=== PATIENT | female | born 1960 | race Caucasian/White ===

== ENCOUNTER 2025-04-11 10:41 | Outpatient (AMB) | payer MEDICARE, MEDICAID, SELFPAY ==
--- NOTE | 2025-04-11 11:04 | MHC.OFFVIS ---
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 She was here with pain, which has been ongoing for the last year, but has worsened over the last few months. Pain was mostly to left gluteus radiating down left upper leg. She could not sit or stand for long periods of time because of pain. Left leg felt weird, but she she could not describe feeling further. She was taking ibuprofen at home which seemed to help, but did not take any today and was in significant discomfort. She was asking if prescription for ibuprofen could be sent and was also interested in PT. She was using walker more for additional support as left leg felt weaker and balance felt like it was more off. She reported falling about 1x/week. She apparently had known history of scoliosis and was working with chiropractor once a week for this. No trouble eating, drinking, or swallowing. [facility] Medical History (Updated 04/11/25 @ 11:54 by Candy Nieto CNP) Panic Anxiety Depression Review of Systems Const Denies chills, Reports daytime sleepiness, Reports difficulty sleeping, Reports fatigue, Denies fever(s), Denies frequent falls, Denies headache(s), Denies increased appetite, Denies poor appetite, Denies snoring, Denies weakness, Denies weight gain and Denies weight loss Eyes Denies loss of vision ENT Denies vertigo, Denies dizziness and Denies headache(s) Card Denies chest pain at rest, Denies chest pain with activity, Denies syncope, Denies leg edema and Denies palpitations Resp Denies snoring GI Denies constipation, Denies heartburn, Denies diarrhea and Denies nausea Denies urinary frequency, Denies urinary incontinence and Denies urinary urgency Musc Reports abnormal gait (balance difficulty), Denies numbness and Denies tingling Skin/Breast Denies dry skin and Denies rash Neuro Reports abnormal gait (balance difficulty), Denies vertigo, Denies dizziness, Denies syncope, Denies frequent falls, Denies headache(s), Reports lack of coordination, Denies loss of vision, Denies memory loss, Denies numbness, Denies restless legs, Denies seizure-like activity, Denies tingling, Denies paresthesias, Denies tremor(s) and Denies weakness Psych Reports anxiety, Reports depression, Denies auditory hallucinations, Denies memory loss, Denies visual hallucinations and Denies suicidal ideation Endo Reports fatigue and Denies palpitations Physical Exam Const Other: General Appearance:? normal, in no acute distress. Heart:? S1, S2 normal, no murmurs. Lungs:? clear anteriorly and posteriorly. Musculoskeletal:? normal. Extremities:? no edema. Psych:? alert, oriented, cognitive function intact, cooperative with exam. Neuro Other: Mental Status:?Normal attention, orientation, memory and anxious affect, fidgeting and changing positions.? Cranial Nerves:?Pupils are equal, round and reactive to light. External occular muscles are intact. Visual clarke are full. Face is symmetrical. Facial sensations are normal. Tongue is midline. Palate elevates symmetrically. Shoulder shrugging is normal. Hearing to bedside conversation is normal. Coordination:?Mild to moderate ataxia. Gait Exam: Moderately spastic gait. She has difficulty walking on toes and she tends to walk on heels. Extrapyramidal System:?No tremor, rigidity with normal facial expressions.? Pronator Drift:?Not present.? Involuntary Movements:?No tremors seen.? Speech:?Mild ataxia speech. 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 Discussed option for prednisone taper, declining at this time. PT referral placed. MRI LS ordered. Plan Meds tried: gabapentin, amantadine Orders: Orders PT Evaluation and Treatment Today G11.8 - Other hereditary ataxias, M54.16 - Radiculopathy, lumbar region MR lumbar spine wo con Today G11.8 - Other hereditary ataxias, M54.16 - Radiculopathy, lumbar region Medications: New ibuprofen with food or milk 600 mg PO BID PRN 60 tabs 2RF pain 30 days Coding Level of Care Code Est Pt Level 4 (60921) Diagnoses Eugene-John disease G11.8 Spinocerebellar ataxia G11.8 Fatigue, unspecified type R53.83 Fatigue type: unspecified Lumbar radiculopathy M54.16
--- OUTSIDE RECORDS SUMMARY | 2025-04-11 12:51 | XMS_ITS | Data Portability ---
Author Organization [place] - [facility], Allergy Address [address] [facility] [facility] [address] [place] [phone] Care Team Providers Care Weight Shifter Name Role Phone ESME MOCK Primary Care Provider Assessment Encounter Date Assessment Date Assessment LastModified by Organization Details LastModified Time 10/19/2024 10/19/2024 63-year-old female presents for reevaluation of left-sided otitis externa. Symptoms resolved with topical Ciprodex. TMs are intact and middle ear spaces are well-aerated. Patient will return for routine 6-month ear check with Dr. Arevalo. german Not available 10/19/2024 14:27:26 Plan of Treatment Reminders Order Date Submit Date Provider Last Modified By Organization Details Last Modified Time Details Appointments Establish ed 10 2024 03:00P M AG AREVALO MD Not available Not available Not available Lab None recorded. Referral None recorded. Procedures None recorded. Surgeries None recorded. Imaging None recorded. Medication Orders ciproflox acin 0.3 %-dexamet hasone 0.1 % ear drops,[facility] 2024 025 [facility]/Pharmacy #[id number], [address] [place], [address], 09/22/2024 15:46:29 clotrimaz ole 1 % topical solution 2023 025 [facility]/Pharmacy #[id number], [address] [place], [address], 09/22/2024 15:06:42 Patient TargetsNo targets recorded. Patient InstructionsNo instructions recorded. Reason for Referral None Reported. Problems Name Problem SNOMED Code Status Onset Date Resolution Date Notes Provider Name and Address Organization Details Recorded Time Itching of skin 217869303 Active 2019 Pruritus , unspecif ied; Note: Date Diagnose d: 0 2:29 PM (L29.9) Not Available [facility] 4 02:18:45 Central perforat ion of left tympanic membrane 67222690761 56579 Active 2019 Central perforat ion of tympanic membrane , left ear; Note: Date Diagnose d: 0 2:29 PM (H72.02) Not Available [facility] 4 02:19:47 Disorder of left Eustachi an tube 14946850342 24350 Active 2019 Other specifie d disorder s of Eustachi an tube, left ear; Note: Date Diagnose d: 0 3:12 PM (H69.82) Not Available [facility] 4 02:19:38 Sensorin eural hearing loss of bilatera l ears 245921625 Active 2019 Sensorin eural hearing loss, bilatera l; Note: Date Diagnose d: 04/10/20 20 2:28 PM (H90.3) Not Available [facility] 4 02:19:22 Adhesive middle ear disease 2151192 Active 2019 Adhesive middle ear disease, bilatera l; Note: Date Diagnose d: 04/10/20 20 1:30 PM (H74.13) Not Available [facility] 4 02:19:42 Partial loss of ear ossicles 95737223 Active 2019 Partial loss of ear ossicles , left ear; Note: Date Diagnose d: 04/10/20 20 1:30 PM (H74.322 ) Not Available [facility] 4 02:19:54 Mixed conducti ve and sensorin eural hearing loss, bilatera l 932822757 Active 2020 Mixed conducti ve and sensorin eural hearing loss, bilatera l; Note: Date Diagnose d: 1 2:28 PM (H90.6) Not Available [facility] 4 02:19:42 Choleste atoma of left tympanic membrane 09001246550 16507 Completed 202001/22/2024 Choleste atoma of tympanum , left ear; Note: Date Diagnose d: 08/24/2020 1:24 PM (H71.12) Not Available [facility] 4 02:18:50 Follow-u p visit Active 2020 Medical surveill ance followin g complete d treatmen t; Note: Date Diagnose d: 3:16 PM (Z09) Not Available [facility] 4 02:18:36 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 050741632 Completed 202001/22/2024 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, left ear; Note: Date Diagnose d: 06/07/20 21 3:58 PM (H95.02) Not Available [facility] 4 02:19:26 Sensorin eural hearing loss in left ear 04080563725 109 Active 2021 Sensorin eural hearing loss, unilater al, left ear, with restrict ed hearing on the contrala teral side; Note: Date Diagnose d: 09/24/2021 4:00 PM (H90.A22 ) Not Available [facility] 4 02:19:26 Pain of left temporom andibula r joint 56460063849 410635 Active 2021 Arthralg ia of left temporom andibula r joint; Note: Date Diagnose d: 2 3:11 PM (M26.622 ) Not Available [facility] 4 02:18:48 Otalgia of left ear 8396769277 Active 2021 Otalgia, left ear; Note: Date Diagnose d: 2 3:11 PM (H92.02) Not Available [facility] 4 02:18:30 Otorrhea of left ear 56933238740 13933 Completed 202101/22/2024 Otorrhea , left ear; Note: Date Diagnose d: 2 3:11 PM (H92.12) Otorrh ea, left ear; Note: Date Diagnose d: 05/21/20 21 3:46 PM (H92.12) ; Start Date : 05/21/20 21 Otorr hea, left ear; Note: Date Diagnose d: 0 2:29 PM (H92.12) ; Start Date : 01/30/20 20 AG AREVALO MD [address] [place] [address], [place], [phone] , [facility] - [facility] 5 15:45:21 Candidal otitis externa 73216250 Active 2022 Candidal otitis externa; Note: Date Diagnose d: 09/25/2022 3:39 PM (B37.84) Not Available [facility] 4 02:18:58 Tobacco user 301678401 Active 2022 Tobacco use; Note: Date Diagnose d: 03/31/20 23 3:31 PM (Z72.0) Not Available [facility] 4 02:18:36 Superfic ial mycosis 594211194 Active 2023 Other specifie d superfic ial mycoses; Note: Date Diagnose d: 4 4:00 PM (B36.8) Not Available [facility] 4 02:19:52 Dermal mycosis 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 Active 2023 AG AREVALO MD [address] [place] [address], [place], [phone] , [facility] 4 16:11:44 Chronic mycotic otitis externa 669288831 Active 2023 AG AREVALO MD [address] [place] [address],[place] [address], [place], [address] , [facility] 4 16:11:44 Otorrhea of left ear 17061790040 21001 Active 2024 Otorrhea , left ear; Note: Date Diagnose d: 2 3:11 PM (H92.12) Otorrh ea, left ear; Note: Date Diagnose d: 05/21/20 21 3:46 PM (H92.12) ; Start Date : 05/21/20 21 Otorr hea, left ear; Note: Date Diagnose d: 0 2:29 PM (H92.12) ; Start Date : 01/30/20 20 AG AREVALO MD [address] [facility],[place] [address], [place], [address] , [facility] 5 15:45:21 Notes:Unspecified complicati on of procedure, initial encounter Note: Date Diagnosed: 08/31/2020 5:07 PM (T81.9XXA) Note: Date Diagnosed: 08/31/2020 5:07 PM (T81.9XXA) Problem Notes None recorded. Procedures Surgical History Date Name Laterality Status Provider Name and Address Organization Details Recorded Time 5 EAC debris removal with microscope completed AG AREVALO MD [address] [place] [address],[place] [address], [place], [address], [facility] 09/22/2024 15:45:50 4 EAC debris removal with microscope completed AG AREVALO MD [address] [place] [address],[address], [address], [facility] 03/22/2024 16:11:02 Imaging Results None recorded. Procedure Notes None recorded. Medical Equipment None Reported. Allergies Allergen ID Allergen Name Allergen Category Reaction Reaction Severity Criticality Documentation Date Start Date Code Code System Note Provider Name and Address Organization Details Recorded Time 06625 Iodinated contrast media (substanc e) medicatio n other Not available Not available 11/03/2023 80094 2003 SNOMED React ion: unkno wn, unspe cifie d;; Not Available [facility] 4 00:51:41 Medications Name Sig Start Date Stop Date Status Note LastModified by Organization Details LastModified Time amantadin e HCl 100 mg tablet TAKE 1 TABLET IN AM AND 1 TAB AT NOON ORALLY DIRECTED 30 DAY(S) 03/22 completed Not Available Not Available Not Available amoxicill in 500 mg capsule TAKE 1 CAPSULE (500 MG) BY MOUTH EVERY 8 HOURS FOR 7 DAYS 09/22 completed Not Available Not Available Not Available Augmentin 875 mg-125 mg tablet 03/22 completed Medicati on ID: [id number] D uration Value: 10 Prescri bed By Name: SJ Macias nd Name: Augmenti n Send Method: E-Prescr ibed Sub s Allowed: subs OK Speci al Instruct ion: 1 po bid for 10 days Med icationG enericNa me: Augmenti n Not Available Not Available Not Available alendrona te 70 mg tablet TAKE 1 TABLET BY MOUTH EVERY 7 DAYS active Not Available Not Available No t Available clonazepa m 0.5 mg tablet TAKE 1 TABLET BY MOUTH EVERY DAY NEEDED active Not Available Not Available No t Available sertralin e 100 mg tablet TAKE 1 AND 1/2 TABLETS BY MOUTH EVERY MORNING active Not Available Not Available No t Available Ciloxan 0.3 % eye drops 03/22 completed Medicati on ID: [id number] D uration Value: 14 Brand Name: Ciloxan Send Method: E-Prescr ibed Sub s Allowed: subs OK Speci al Instruct ion: Instill 4 drops twice a day into right ear for 14 days Med icationG enericNa me: Ciloxan Not Available Not Available Not Available acetamino phen 500 mg tablet TAKE 1 TABLET BY MOUTH EVERY 6 HOURS IF NEEDED FOR MILD PAIN FOR UP TO 10 DAYS. 09/22 completed Not Available Not Available Not Available clotrimaz ole-betam ethasone 1 %-0.05 % topical cream APPLY SMALL AMOUNT WITH A CLEAN FINGER THREE TIMES DAILY FOR TWO WEEKS THEN NEEDED 03/22 completed Not Available Not Available Not Available clotrimaz ole 1 % topical solution APPLY 4 DROPS TO THE AFFECTED EAR 3 TIMES A DAY FOR 2 WEEKS 09/22 completed Not Available Not Available Not Available ibuprofen 600 mg tablet TAKE 1 TABLET (600 MG) BY MOUTH EVERY 6 (SIX) HOURS IF NEEDED FOR MILD PAIN FOR UP TO 10 DAYS. 09/22 completed Not Available Not Available Not Available sertralin e 50 mg tablet TAKE 1 TABLET BY MOUTH EVERY DAY IN THE MORNING 09/22 completed Not Available Not Available Not Available tobramyci n 0.3 %-dexamet hasone 0.1 % eye drops,[facility] pension INSTILL 4 DROPS INTO LEFT EAR(S) BY OTIC ROUTE 2 TIMES PER DAY FOR 10 DAYS active Not Available Not Available No t Available oxycodone 5 mg tablet 1 tablet by mouth 03/22 completed Medicati on ID: [id number] D uration Value: 3 Brand Name: oxycodon e Send Method: E-Prescr ibed Sub s Allowed: subs OK Medic ationGen ericName : oxycodon e Not Available Not Available Not Available neomycin- polymyxin -hydrocor t 3.5 mg-10,000 unit/mL-1 % ear drops,tamara p into both ears 09/30 completed Medicati on ID: [id number] P rescribe d By Name: Ag Arevalo M.D. Bra nd Name: neomycin -polymyx in-HC Se nd Method: E-Prescr ibed Sub s Allowed: subs OK Speci al Instruct ion: 4 drops affected ear BID X 14 days Med icationG enericNa me: neomycin -polymyx in-HC Not Available Not Available Not Available ciproflox acin 0.3 %-dexamet hasone 0.1 % ear drops,[facility] pension INSTILL 4 DROPS INTO LEFT EAR TWICE A DAY FOR 10 DAYS active Not Available Not Available No t Available chlorhexi dine gluconate 0.12 % mouthwash RINSE AND SPIT 15 ML IN THE MOUTH OR THROAT FOR 30 SECONDS IF NEEDED FOR 14 DAYS 09/22 completed Not Available Not Available Not Available Vitals Date Recorded Body height Body mass index (BMI) Body weight Provider Name and Address Organization Details Last Updated DateTime 10/19/2024 161.29 cm 20.1 kg/m2 41384.12 g Galina Narvaez [facility] 10/19/2024 14:17:51 Social History None recorded. Functional Status None recorded. Mental Status None recorded. Family History Nothing Reported. Medical History Condition Response Anxiety Y Depression Y Gynecological HistoryNo gynecological history recorded. Obstetrics History GPAL:G 0 P 0 0 0 0 Past Encounters Encounter ID Performer Location Encounter Start Date Encounter Closed Date Diagnosis/Indication Diagnosis SNOMED-CT Code Diagnosis ICD10 Code Diagnosis IMO Codes Diagnosis Note [id number] AG AREVALO MD [facility] [address] [address] 03/22/2024 15:21:41 03/22/2024 16:14:36 Candidal otitis externa 50520123 B37.84 Patient is demonstrat ing left fungal otitis externa medially. This is not affecting the medial skin. The ear was thoroughly debrided of fungal debris. Recommend 2 weeks of topical clotrimazo le drops to be used 3 times a day. This should clear up this low-level infection. [id number] AG AREVALO MD [facility] [address] [address] 09/22/2024 14:47:25 09/22/2024 15:51:35 Otorrhea of left ear [id number] 716711 H92.12 Left ear is demonstrat ing yellow/gre en otorrhea which is much more likely to be bacterial than fungal at this point. Recommend 10 days of topical Ciprodex drops to be used twice a day. Recommend dry ear precaution s. Follow-up with PA in 2 to 3 weeks to ensure resolution of the infection Tobacco user 742072887 Z 72.0 Recommende d stopping smoking as this is likely a factor in her propensity towards chronic infection [id number] ALLAN MARINO PA-C [facility] [address] [address] 10/19/2024 14:12:01 10/19/2024 14:25:03 Adhesive middle ear disease 9756156 H74.13 Health Concerns Section Related Observation LastModified by Organization Detai ls LastModified Time None Recorded Concern Status LastModified by Organization Details LastModified Time None Recorded Advance Directives Directive None Recorded Payers Insurance Date Sequence Insurance Name Policy Number Policy Samuel Covered Member ID Samuel Member ID Guarantor Name 09/22/2024 2 [place] 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 I have prescribed clotrimazole/betam ethasone cream to be used 3 times a day for 2 weeks. Recommend strongly against further Q-tip use. Patient reports that she has not been using Q-tips. She has been noticing significant itchiness in the left ear recently. AG AREVALO MD [address] 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 She has been treated with clotrimazole/betam ethasone cream as well as topical clotrimazole drops. Last seen back in March 2024. AG AREVALO MD [address] [facility], [address], [facility] - [facility] 09/22/2024 15:49:54 10/19/2024 text/html ROS as noted in the HPI 63-year-old female presents for reevaluation of left-sided otitis externa. She trialed topical Ciprodex for 10 days. Patient reports symptoms resolved. No new concerns today. AG AREVALO MD [address] [facility], [address], [facility] - [facility] 10/19/2024 17:16:08 OBGyn Episode No OBEpisode recorded.
== END 2025-04-11 11:28 | disposition home or self-care (01) ==
LOC: HO.HSM 10:41
PROVIDERS: PCP Internal Medicine; Referring Provider Internal Medicine; Visit Provider Registered Nurse
DX: G11.8 Other hereditary ataxias (principal); R53.83 Other fatigue; M54.16 Radiculopathy, lumbar region
CPT/HCPCS: 99214

== ENCOUNTER → 2025-04-11 10:41 | Outpatient (BNVA) | payer MEDICARE, MEDICAID, SELFPAY | PROVIDERS: PCP Internal Medicine; Referring Provider Internal Medicine; Visit Provider Registered Nurse | DX: G11.8 Other hereditary ataxias (principal); R53.83 Other fatigue; M54.16 Radiculopathy, lumbar region | CPT/HCPCS: 99212 ==

== ENCOUNTER 2025-05-24 16:22 | Outpatient (REF) | payer MEDICARE, MEDICAID, SELFPAY ==
--- NOTE | ~2025-05-24 | MR_ITS ---
EXAM: MRI Lumbar Spine without Contrast. TECHNIQUE: Multiplanar multisequence MRI of the lumbar spine with performed without contrast. INDICATION: M54.16 - Radiculopathy, lumbar PRIOR: None FINDINGS: 5 non-rib bearing lumbar segments are assumed for numbering purposes. If level specific intervention is planned, correlate with an x-ray to ensure concordant numbering. Marrow and end-plates: There is a chronic superior endplate fracture of T11. There is mild edema like signal in the right superior facet of L4. Alignment: There is mild levoscoliosis. Soft tissues: Paraspinal soft tissues and major vascular structures are unremarkable. Conus: The termination of conus medullaris is within normal limits at the level of upper L2. T12-L1: There is no disc bulge, herniation, spinal stenosis, or foraminal narrowing. L1-L2: There is mild loss disc height and circumferential broad-based disc bulge. There is mild facet arthropathy. There is no spinal stenosis or foraminal narrowing. L2-L3: There is mild circumferential broad-based disc bulge and mild facet arthropathy. There is subtle narrowing of the right subarticular zone without clear compression of the nerve root. There is very minimal foraminal narrowing. L3-L4: There is mild circumferential broad-based disc bulge and mild facet arthropathy without spinal stenosis. There is minimal foraminal narrowing. L4-L5: There is mild broad-based disc bulge and facet arthropathy without spinal stenosis. There is very minimal foraminal narrowing. L5-S1: Chronic right pars intra-articularis defect is noted. There is subtle anterolisthesis with minimal broad-based disc bulge not resulting in spinal stenosis. There is minimal foraminal narrowing. MR/MR lumbar spine wo con IMPRESSION: Mild multilevel degenerative disc disease and facet arthropathy without clear nerve root compression or spinal stenosis. There is mild edema like signal superior facet of L4 on the right of uncertain etiology or significance. Possible etiologies could include stress response or degenerative change. L5-S1 demonstrates subtle grade 1 anterolisthesis and a unilateral chronic right pars interarticularis defect. Electronically signed by: Yosi Paez MD 05/24/2025 05:39 PM [facility]
--- OUTSIDE RECORDS SUMMARY | 2025-05-24 19:00 | XMS_ITS | Clinical Summary ---
Author Organization [employer] [facility] Address [address] [place] [address] Care Team Providers Care Wrecking Supervisor Name Role Phone Unavailable Primary Care Provider Unavailabl e Allergies Active Allergy Reactions Criticality Noted Date Comments Lactose Intolerance (Gi) 06/08/2024 Medications clonazePAM (KlonoPIN) 0.5 MG tablet Take 0.5 mg by mouth if needed each day. Active sertraline (Zoloft) 100 MG tablet TAKE 1 AND 1/2 TABLETS BY MOUTH EVERY MORNING Active sertraline (Zoloft) 50 MG tablet Take 1 tablet by mouth in the morning. Active Social History Tobacco Use Types Packs/Day Years Used Date Smoking Tobacco: Never Assessed Comments Unknown Sex and Gender Information Value Date Recorded Sex Assigned at Female 04/21/2022 10:31 AM EDT Legal Sex Female 10:31 AM EDT Gender Identity Female 04/21/2022 10:31 AM EDT Sexual Orientation Straight 04/21/2022 10 :31 AM EDT Last Filed Vital Signs Vital Sign Reading Time Taken Comments Blood Pressure 118/77 06/08/2024 11:34 AM EST Pulse 79 06/08/2024 11:34 AM EST Temperature - - Respiratory Rate - - Oxygen Saturation - - Inhaled Oxygen Concentration - - Weight - - Height - - Body Mass Index - - Plan of Treatment Health Maintenance Due Date Last Done Comments CT Colonography 1962 Colonoscopy 1962 Colorectal Cancer Screening 1962 Depression Screening 1962 FIT DNA/Cologuard 1962 FIT 1962 FOBT 1962 HIV Screening 1962 SDOH Screening 1962 Sigmoidoscopy 1962 Disability Screening 1962 Alcohol/Substance Use Screening 1974 Tobacco Screening 1974 Hepatitis C Screening 1980 Pap Smear 12/19/1983 Cervical Cancer Screening 1992 HPV/Cotest 1992 Mammogram 2002 Pneumococcal Vaccine: 50+ Years (1 of 1 - PCV) 2012 Zoster Vaccines (1 of 2) 2012 Dental Oral Exam 11/07/2021 05/09/2021, 01/30/2017 Dental Prophylaxis 11/07/2021 05/09/2021, 02/03/2017 DTaP/Tdap/Td Vaccines (2 - T d or Tdap) 02/25/2023 02/25/2013 Dental X-Ray: Full Mouth 05/10/2024 021, 01/30/2017 COVID-19 Vaccine ( - 2024-2 6 season) 2025 Influenza Vaccine (#1) 2025 Dental X-Ray: Bitewings 06/09/2025 06/08/20 24, 05/09/2021, 01/30/2017 RSV Patients and Patients Aged 60 years or older (1 - 1-dose 75+ series) 2037 HIB Vaccines Aged Out No longer eligi ble based on patient's age to complete this topic HPV Vaccines Aged Out No longer eligi ble based on patient's age to complete this topic Hepatitis A Vaccines Aged Out No long er eligible based on patient's age to complete this topic Hepatitis B Vaccines Aged Out No long er eligible based on patient's age to complete this topic IPV Vaccines Aged Out No longer eligi ble based on patient's age to complete this topic Meningococcal B Vaccine Aged Out No l onger eligible based on patient's age to complete this topic Meningococcal Vaccine Aged Out No catalina rosa eligible based on patient's age to complete this topic RSV under 20 months Aged Out No longe r eligible based on patient's age to complete this topic Rotavirus Vaccines Aged Out No longer eligible based on patient's age to complete this topic Procedures Procedure Name Priority Date/Time Associated Diagnosis Comments BITEWING - SINGLE RADIOGRAPHIC IMAGE Routine 06/08/2024 11:30 AM EST Symptomatic periapical periodontitis PROPHYLAXIS - ADULT Routine 05/09/2021 1 2:00 AM EST INTRAORAL - COMPLETE SERIES OF RADIOGRAPHIC IMAGES Routine 05/09/2021 12:00 AM EST PERIODIC ORAL EVALUATION - ESTABLISHED PATIENT Routine 05/09/2021 12:00 AM EST from Last 3 Months or Most Recently Relevant to Health Maintenance Insurance [id number] [facility] [address] JERI Harris20 DENTAL - [facility]
--- OUTSIDE RECORDS SUMMARY | 2025-05-24 19:00 | XMS_ITS | Encounter Summary ---
Author Organization [facility] Address [address] [place] [address] Care Team Providers Care Forensic Economist Name Role Phone Krysten Villegas MD Primary Care Provider [phone] Encounter Details Date Type Department Care Team (Late Contact Info) Description 05/01/2025 Results Follow-Up [address] [phone] Marianela Martinez MD [address] [place] [id number] Social History Tobacco Use Types Packs/Day Years Used Date Smoking Tobacco: Every Day Cigarettes 1 45.9 Started: 06/22/1979 Smokeless Tobacco: Current Alcohol Use Standard Drinks/Week Comments No 0 (1 standard drink = 0.6 oz pur e alcohol) Comments Unknown Sex and Gender Information Value Date Recorded Sex Assigned at Not on file Legal Sex Female 2:17 PM EST Gender Identity Not on file Sexual Orientation Not on file documented as of this encounter Plan of Treatment Upcoming Encounters Date Type Department Care Team (Late Contact Info) Description 11/27/2025 1:40 PM EDT Office Visit [address] [phone] Steven Mcgarry MD [address], [place] documented as of this encounter Visit Diagnoses Not on filedocumented in this encounter Care Teams Forensic Economist Relationship Specialty Start Date End Date Krysten Villegas MD [address] [place] [address] PCP - General 08/01/22 documented as of this encounter
--- OUTSIDE RECORDS SUMMARY | 2025-05-24 19:00 | XMS_ITS | Encounter Summary ---
Author Organization [employer] [facility] Address [address] [facility] 7 [place] [address] Care Team Providers Care Systems Programmer Name Role Phone Unavailable Primary Care Provider Unavailabl e Encounter Details Date Type Department Care Team (Latest Contact Info) Description 05/09/2021 Abstract [facility] CONVERSIONS Dental, Provider, DDS Social History Tobacco Use Types Packs/Day Years Used Date Smoking Tobacco: Never Assessed Comments Unknown Sex and Gender Information Value Date Recorded Sex Assigned at Female 04/21/2022 10:31 AM EDT Legal Sex Female 10:31 AM EDT Gender Identity Female 04/21/2022 10:31 AM EDT Sexual Orientation Straight 04/21/2022 10 :31 AM EDT documented as of this encounter Plan of Treatment Not on file documented as of this encounter Visit Diagnoses Not on filedocumented in this encounter
--- OUTSIDE RECORDS SUMMARY | 2025-05-24 19:00 | XMS_ITS | Clinical Summary ---
Author Organization [address] Address [address] [place] [address] [place] [address] Phone Care Team Providers Care Hadoop Java Developer Name Role Phone Krysten Villegas MD Primary Care Provider [phone] Allergies Active Allergy Reactions Criticality Noted Date Comments Iodinated Contrast Media Wheezing 12/16/2014 Ivp Dye [Iv Contrast Dye], SOB, Wheezing Lactose 02/25/2013 Medications clonazePAM (KlonoPIN) 0.5 mg tablet Take 0.5 mg by mouth daily. Hs for sleep Active sertraline (ZOLOFT) 100 mg tablet Take 100 mg by mouth daily. 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 Diagnosed [address] Helm Internal derangement of knee joint 07/26/2015 Overview (06/06/2024): 2012: posterior medial meniscal tear in right knee on MRI Papanicolaou smear of cervix with low grade squamous intraepithelial lesion (LGSIL) 05/11/2013 Overview (06/06/2024): Colposcopy and ECC normal, repeat co-testing in 12 months Depression 07/10/2010 Overview (06/06/2024): History for years - started 1999 Tobacco use disorder 07/10/2010 Encounters Date Type Department Care Team Description 05/01/2025 Results Follow-Up Endocrinology - [place] [address], [place] [phone] Marianela Martinez MD 04/25/2025 9:33 AM EST - 04/25/2025 11:59 PM EST Hospital Encounter Bone Density - [place] [id number] [place], [place] [phone] Osteoporosis without current pathological fracture, unspecified osteoporosis type Discharge Disposition: Home or Self Care from Last 3 Months Immunizations Immunization Administration Dates Next Due Tdap Tetanus diptheria acell ular pertussis (Boostrix; Adacel) 7yo and older 02/25/2013 Surgical History Surgery Date Site/Laterality Comments COLONOSCOPY 04/08/13 PROCEDURE: HISTORICAL COLONOSCOPY; COMMENT: hemorrhoids; repeat in ten yrs Medical History Medical History Date Comments Breast cyst DX:Breast cyst; COMMENT: right side Depression DX:Depression Internal derangement of knee joint 07/26/2015 DX:Internal derangement of knee joint; COMMENT: 2011: posterior medial meniscal tear in right knee on MRI Lung nodules 12/20/2016 DX:Lung nodules; COMMENT: 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); COMMENT: dr rosas Family History Medical History Relation Name Comments No Known Problems Brother 1 Other: Eugene-John disease Brother 2 (spinal cerebellar ataxia) Hypertension Brother 3 high chol Diabetes Brother 4 No Known Problems Daughter Lung cancer Father , smoke r No Known Problems Maternal Grandfather No Known Problems Maternal Grandmother Dementia Mother Diabetes Mother Hypertension Mother dementia Other: other cancer Other uncles No Known Problems Paternal Grandfather No Known Problems Paternal Grandmother No Known Problems Sister 1 No Known Problems Sister 2 Lung cancer Sister 3 , smoke r Hypertension Sister 4 Diabetes Sister 5 Arthritis Sister 6 Breast cancer Neg Hx Relation Name Status Comments Brother 1 dm, hyperlipide becky, htn spinocerebellar ataxia Brother 2 Brother 3 Brother 4 Daughter Father (Age 68) lung cance r Maternal Grandfather Maternal Grandmother Mother (Age 77) dementia, dm, htn Other Paternal Grandfather Paternal Grandmother Sister 1 (Age 52) lung cance r Sister 2 Alive hyperliopidemia Sister 3 Sister 4 Sister 5 Sister 6 Uncle spinocerebellar ataxia Social History Tobacco Use Types Packs/Day Years [...] on file Sexual Orientation Not on file Obstetrics History Last Filed Vital Signs Vital Sign Reading Time Taken Comments Blood Pressure 91/53 11/24/2024 8:55 AM EDT Pulse 100 11/24/2024 8:55 AM EDT Temperature 36.6 C (97.9 F) 11/24/2024 8:55 AM EDT Respiratory Rate 14 11/24/2024 8:55 AM EDT Oxygen Saturation - - Inhaled Oxygen Concentration - - Weight 53.1 kg (117 lb) 11/24/2024 8:55 AM EDT Height 162.6 cm (5' 4.02 ) 11/24/2024 8:55 AM ED T Body Mass Index 20.07 11/24/2024 8:55 AM EDT Plan of Treatment Upcoming Encounters Date Type Department Care Team (Late st Contact Info) Description 11/27/2025 1:40 PM EDT Office Visit Endocrinology - [place] [address], [place] [phone] Steven Mcgarry MD [address] [place] [address] Health Maintenance Due Date Last Done Comments Colorectal Cancer Screening: Colonoscopy 1962 COVID-19 Vaccine (#1) 12/19/1967 Pneumococcal Vaccine: 50+ Years (1 of 2 - PCV) 1981 Zoster Vaccines (1 of 2) 1981 Breast Cancer Screening 10/07/2020 10/07/2018 Cervical Cancer Screening: P ap Smear 09/10/2021 09/10/2018 Medicare Annual Wellness Visit 05/31/2022 Social Influencers of Health Screening 05/31/2022 DTaP,Tdap,and Td Vaccines (2 - Td or Tdap) 02/25/2023 02/25/2013 Depression Screening 06/22/2024 Cholesterol Screening (Lipid Panel) 09/07/2024 09/08/2019 Influenza Vaccine (#1) 2025 Osteoporosis Screening (Bone Density Screening) 04/25/2035 04/25/2025, 10/31/2022 RSV Immunization Adult Patients (1 - 1-dose 75+ series) 2037 HIV Screening Completed 02/05/2012 Hepatitis C Screening Completed 02/17/2012 HIB Vaccines Aged Out No longer eligi [...] on patient's age to complete this topic MMR Vaccines Aged Out No longer eligi ble based on patient's age to complete this topic Meningococcal ACWY Vaccine Aged Out N o longer eligible based on patient's age to complete this topic Meningococcal B Vaccine Aged Out No l onger eligible based on patient's age to complete this topic RSV Immunization Patients Under 20 months Aged Out No longer eligible b ased on patient's age to complete this topic Varicella Vaccines Aged Out No longer eligible based on patient's age to complete this topic Procedures Procedure Name Priority Date/Time Associated Diagnosis Comments BD BONE DENSITY DXA AXIAL SKELETON Routine 04/25/2025 10:17 AM EST Osteoporosis without current pathological fracture, unspecified osteoporosis type LIPID PANEL Routine 09/08/2019 SCR MAMMO BI INCL CAD Routine 10/07/2018 12:03 PM EDT Encounter for general adult medical examination without abnormal findings Nicotine dependence, unspecified, uncomplicated PAP SMEAR Routine 09/10/2018 HEPATITIS C SCREENING Routine 02/17/2012 HIV SCREENING Routine 02/05/2012 from Last 3 Months or Most Recently Relevant to Health Maintenance Results * BD Bone Density DXA Axial Skeleton (04/25/2025 10:17 AM EST) Anatomical Region Laterality Modality Wrist, Hip, L-spine Bone Densito metry 05/01/2025 8:36 AM EST Impressions 05/01/2025 8:37 AM EST Osteoporosis by WHO criteria. The [facility] Department of Internal Medicine recommends using National Osteoporosis Foundation (NOF) guidelines in treatment decisions related to osteoporosis. NOF guidelines suggest considering treatment for postmenopausal women and men aged 50 or older presenting with the following: History of hip or vertebral fracture. T-score = -2.5 (DXA) at the femoral neck, total hip, or spine, after appropriate evaluation to exclude secondary causes. Low bone mass (T-score between -1.0 and -2.5 at the femoral neck or spine) AND a 10-year probability of a hip fracture = 3% OR a 10-year probability of a major osteoporosis-related fracture = 20% based on the [place]-adapted WHO algorithm Please note that all treatment decisions require clinical judgment and consideration of individual patient factors, including patient preferences, co-morbidities, previous drug use, risk factors not captured in the FRAX model (e.g., frailty, falls, vitamin D deficiency, increased bone turnover, interval significant decline in bone density) and possible under- or over-estimation of fracture risk by FRAX. Optional alternative screening schedule based on honorio Bwoen., [facility] July 10, 2011 for patients with osteopenia (based on hip BMD T-score) is as follows: * advanced osteopenia (T scores -2.00 to -2.49), BMD testing every year * moderate osteopenia (T scores -1.50 to -1.99), BMD testing every 5 years mild osteopenia or normal BMD (T scores -1.50 and higher), BMD testing every 15 years -------- FINAL REPORT -------- Dictated By: Charleen Quintero Dictated Date: 05/01/2025 08:36 ET Assigned Physician: Charleen Quintero Reviewed and Electronically Signed By: Charleen Quintero Signed Date: 05/01/2025 08:37 ET Workstation ID: [id number] Transcribed By: Self Edit Transcribed Date: 05/01/2025 08:36 ET Narrative 05/01/2025 8:37 AM EST BONE DENSITY SCAN (DEXA): FINDINGS: Lumbar Spine T-score is -2.4. (SD relative to 20-29 y/o adult) Z-score is -0.8. (SD relative to age matched peers) This is considered osteopenia by WHO criteria. Left Hip T-score is -2.5. Z-score is -1.1. This is considered osteoporosis by WHO criteria. Comparison exam(s): 10/31/2022. 14.4% increase in lumbar spine bone mineral density and 8.8% increase in left hip bone mineral density, both statistically significant at the 95% confidence level. Procedure Note Charleen Quintero MD - 05/01/2025 BONE DENSITY SCAN (DEXA): FINDINGS: Lumbar Spine T-score is -2.4. (SD relative to 20-29 y/o adult) Z-score is -0.8. (SD relative to age matched peers) This is considered osteopenia by WHO criteria. Left Hip T-score is -2.5. Z-score is -1.1. This is considered osteoporosis by WHO criteria. Comparison exam(s): 10/31/2022. 14.4% increase in lumbar spine bonemineral density and 8.8% increase in left hip bone mineral density, bothstatistically significant at the 95% confidence level. IMPRESSION: Osteoporosis by WHO criteria. The [facility] Department of Internal Medicine recommendsusing National Osteoporosis Foundation (NOF) guidelines in treatmentdecisions related to osteoporosis. NOF guidelines suggest consideringtreatment for postmenopausal women and men aged 50 or older presentingwith the following: History of hip or vertebral fracture. T-score = -2.5 (DXA) at the femoral neck, total hip, or spine, afterappropriate evaluation to exclude secondary causes. Low bone mass (T-score between -1.0 and -2.5 at the femoral neck or spine)AND a 10-year probability of a hip fracture = 3% OR a 10-year probabilityof a major osteoporosis-related fracture = 20% based on the [place]-adapted WHOalgorithm Please note that all treatment decisions require clinical judgment andconsideration of individual patient factors, including patientpreferences, co-morbidities, previous drug use, risk factors not capturedin the FRAX model (e.g., frailty, falls, vitamin D deficiency, increasedbone turnover, interval significant decline in bone density) and possibleunder- or over-estimation of fracture risk by FRAX. Optional alternative screening schedule based on honorio Bowen., [facility] for patients with osteopenia (based on hip BMD T-score)is as follows: * advanced osteopenia (T scores -2.00 to -2.49), BMD testing every year * moderate osteopenia (T scores -1.50 to -1.99), BMD testing every 5years mild osteopenia or normal BMD (T scores -1.50 and higher), BMD testingevery 15 years -------- FINAL REPORT -------- Dictated By: Charleen Quintero Dictated Date: 05/01/2025 08:36 ET Assigned Physician: Charleen Quintero Reviewed and Electronically Signed By: Charleen Quintero Signed Date: 05/01/2025 08:37 ET Workstation ID: [id number] Transcribed By: Self Edit Transcribed Date: 05/01/2025 08:36 ET Marianela Martinez MD IMG DXA PROCEDURES Final Result * (ABNORMAL) Lipid panel (09/08/2019) LDL/HDL Ratio 4 0 - 4 Triglycerides 74 0 - 150 mg/dL Cholesterol 196 0 - 200 mg/dL HDL 50 >=40 mg/dL LDL Cholesterol 132(A) 0 - 100 mg/dL Blood Venous blood specimen / Unknown Historical Provider LAB BLOOD ORDERABLES Madai l Result * SCR MAMMO BI INCL CAD (10/07/2018 12:03 PM EDT) Anatomical Region Laterality Modality Radiographic Rosy ging 09/10/2018 12:2 9 PM EDT Narrative 10/11/2018 12:36 PM EDT This is a summary report. The complete report is available in the patient's medical record. If you cannot access the medical record, please contact the sending organization for a detailed fax or copy. Full field digital screening mammography, reviewed with CAD and compared to previous. The breast tissue is heterogeneously dense, limiting sensitivity. No suspicious mass, architectural distortion or suspicious calcifications are identified. IMPRESSION: : Dense breast tissue, limiting the sensitivity of mammography. No mammographic evidence of malignancy. BIRADS 1-Negative; N. 5 year breast cancer risk assessment 1.2 % Lifetime breast cancer risk assessment 8.3 % Breast cancer risk category Low (<15%) Procedure Note Yenni Montejo MD - 06/10/2022 This is a summary report. The complete report is available in thepatient's medical record. If you cannot access the medical record, pleasecontact the sending organization for a detailed fax or copy. Full field digital screening mammography, reviewed with CAD and comparedto previous. The breast tissue is heterogeneously dense, limitingsensitivity. No suspicious mass, architectural distortion or suspiciouscalcifications are identified. IMPRESSION: : Dense breast tissue, limiting the sensitivity of mammography. Nomammographic evidence of malignancy. BIRADS 1-Negative; N. 5 year breast cancer risk assessment 1.2 % Lifetime breast cancer risk assessment 8.3 % Breast cancer risk category Low (<15%) Jose RIVAS IMG XR PROCEDURES Madai l Result * Pap Smear (09/10/2018) Pap smear Abstracted, No interpretation Historical Provider HEALTH MAINTENANCE Final Result * Hepatitis C Screening (02/17/2012) Hepatitis C Screening Abstracted Historical Provider HEALTH MAINTENANCE Final Result * HIV Screening (02/05/2012) HIV Screening Abstracted us Historical Provider HEALTH MAINTENANCE Final Result from Last 3 Months or Most Recently Relevant to Health Maintenance Insurance MEDICARE [place]ICAID [place] [employer] Care Teams Hadoop Java Developer Relationship Specialty Start Date End Date Krysten Villegas MD [address] [place] [address] PCP - General 08/01/22
== END 2025-05-24 16:23 | disposition home or self-care (01) ==
LOC: HO.MRI 16:22
PROVIDERS: PCP Internal Medicine; Visit Provider Registered Nurse
DX: M54.16 Radiculopathy, lumbar region (principal); G11.8 Other hereditary ataxias
CPT/HCPCS: 72148

== ENCOUNTER → 2025-05-24 16:22 | Outpatient (BNV) | payer MEDICARE, MEDICAID, SELFPAY | PROVIDERS: PCP Internal Medicine; Visit Provider Radiology Diagnostic Radiology | DX: M47.16 Other spondylosis with myelopathy, lumbar region (principal); M51.369 Other intervertebral disc degeneration, lumbar region without mention of lumbar back pain or lower extremity pain; R60.0 Localized edema | CPT/HCPCS: 72148 ==